=== PATIENT | female | born 2000 | race Caucasian/White ===

== ENCOUNTER 2025-04-11 23:12 | Emergency (ER) | payer SELFPAY ==
[2025-04-12] MEDS ORDERED: Acetaminophen 500 MG TAB ONE
[2025-04-12] MEDS ORDERED: Methocarbamol 500 MG TAB ONE (00:39)
[2025-04-12 00:48] LABS: Pregnancy Test - Urine (BHCG) Negative (Negative); Pregu Control Background? CLEAR/WHITE (CLR/WHITE); Pregu Control Bar Appear? YES (CONTROL BAR)
[2025-04-12 00:49] LABS: CAUTI Indications for Culture Pelvic or flank pain; Glucose, Urine (Dipstick) Normal (Negative); Leukocyte 25 Leu/uL (Negative); Protein, Urine (Dipstick) Negative (Neg-Trace); RBC/HPF 0-3 HPF (0-3); Specific Gravity, Urine 1.021 (1.002-1.036); WBC/HPF 0-3 HPF (0-3)
[2025-04-12 00:51] LABS: Bacteria/HPF 1+ HPF (None Seen)
[2025-04-12 00:52] LABS: Urine Culture Reflex No No
[2025-04-12] MEDS ORDERED: Ketorolac Tromethamine 30 MG (1 mL) VIAL ONE (00:57)
== END 2025-04-12 01:16 | disposition home or self-care (01) ==
LOC: ERS 23:12
DX: M54.41 Lumbago with sciatica, right side (principal); E03.9 Hypothyroidism, unspecified; Z79.890 Hormone replacement therapy
CPT/HCPCS: 81001; 81025; 96372; 99283; J1100; J1885